=== PATIENT | female | born 2000 | race Caucasian/White ===

== ENCOUNTER 2024-11-27 14:39 | Emergency (ER) | payer OTHER ==
[~2024-11-27] VITALS: Ht 167.6 cm; Wt 82.0 kg
[2024-11-27 14:45] VITALS: TEMP 36.8; O2SAT 98
[2024-11-27 15:31] VITALS: BP 121/74; PULSE 78; RESP 16; O2SAT 100
== END 2024-11-27 15:37 ==
LOC: ER 14:39
DX: F19.10 Other psychoactive substance abuse, uncomplicated (principal); F15.90 Other stimulant use, unspecified, uncomplicated; Z02.89 Encounter for other administrative examinations
CPT/HCPCS: 99283